=== PATIENT | female | born 1945 | race Caucasian/White ===

== ENCOUNTER 2016-10-10 11:30 | Emergency (ER) | payer MEDICAID, MEDICARE ==
[~2016-10-10] VITALS: Ht 160 cm; Wt 77.0 kg
[2016-10-10 11:33] VITALS: Ht 160 cm; Wt 77.0 kg
== END 2016-10-10 17:32 | disposition left against medical advice (07) ==
LOC: E/R 11:30
DX: Z53.21 Procedure and treatment not carried out due to patient leaving prior to being seen by health care provider (principal)

== ENCOUNTER 2017-07-06 08:46 | Day surgery (SDC) | END 2017-07-06 14:29 | disposition home or self-care (01) ==